=== PATIENT | female | born 1960 | race Two or more races ===

== ENCOUNTER 2020-09-27 13:33 | Inpatient (IN) | payer MEDICARE, OTHER ==
[~2020-09-27] VITALS: Ht 167.6 cm; Wt 95.3 kg
[2020-09-27] MEDS ORDERED: DiphenhydrAMINE 50mg/ml Inj IVP ONE (13:45)
[2020-09-27] MEDS ORDERED: LORazepam Inj 2mg/ml 1ml IM ONE (13:45)
[2020-09-27] MEDS ORDERED: Haloperidol 5mg/ml Inj IM ONE (13:45)
[2020-09-27 14:18] VITALS: BP 169/90
--- NOTE | 2020-09-27 14:19 | Emergency Room Report ---
History of Present Illness General Chief Complaint: Altered Mental Status Source: Patient (Ton Coughlin MD) Present Illness HPI Patient is a approximately 39-year-old female who presents for increased altered mental status and agitation. Patient had been found on the street. Had been behaving bizarrely. Unknown past medical history. History is markedly limited by patient being a poor historian. Patient was brought in by EMS with not given any medication. She was reportedly moving all extremities. (Ton Coughlin MD) Allergies: Coded Allergies: No Known Allergies (Unverified , 09/28/20) COVID-19 Screening Contact w/high risk pt: No Experienced COVID-19 symptoms?: No COVID-19 Testing performed [employer]: No (Ton Coughlin MD) Patient History Past Medical History: see triage record Reviewed Nursing Documentation: PMH: Agreed; PSxH: Agreed (Ton Coughlin MD) Nursing Documentation-PMH Past Medical History Deferred: Pt Cognitively Impaired Past Medical History: Deferred (Ton Coughlin MD) Review of Systems All Other Systems: negative except mentioned in HPI (Ton Coughlin MD) Physical Exam Vital Signs Date Time Temp Pulse Resp B/P (MAP) Pulse Ox O2 Delivery O2 Flow Rate FiO2 09/27/20 13:27 97.9 80 19 131/82 (98) 99 Room Air Sp02 EP Interpretation: reviewed, normal General Appearance: normal inspection, well appearing, no apparent distress, alert Head: atraumatic ENT: normal ENT inspection, hearing grossly normal, normal voice Neck: normal inspection, full range of motion, supple, no bony tend Respiratory: normal inspection, lungs clear, normal breath sounds, no respi ratory distress, no retraction, no wheezing Cardiovascular #1: regular rate, rhythm, no edema Gastrointestinal: normal inspection, normal bowel sounds, non tender, soft, no guarding, no hernia Genitourinary: no CVA tenderness Musculoskeletal: normal inspection, back normal, normal range of motion Neurologic: alert, responsive, other - agitation Psychiatric: normal inspection, judgement/insight normal, mood/affect normal Skin: no rash (Ton Coughlin MD) Medical Decision Making Diagnostic Impression: Primary Impression: Psychosis Qualified Codes: F23 - Brief psychotic disorder Additional Impressions: Methamphetamine abuse UTI (urinary tract infection) Qualified Codes: N30.00 - Acute cystitis without hematuria ER Course Patient presented for altered mental status. Differential diagnosis include was not limited to psychosis, urinary tract infection, substance abuse among others. Because of complexity of patient's case laboratory tests and imaging studies were ordered. Patient was noted to have some increased confusion. CT imaging showed no evidence of acute pathology. Patient was noted to have urine drug screen positive for amphetamine. Laboratory testing also showed some evidence of urinary tract infection. Patient started on IV antibiotics. Patient endorsed to Dr. Atwood pending reevaluation after medications (Ton Coughlin MD) ER Course Patient was signed out to me. She came in agitated as a Yojana Funes. She was sedated with Ativan and Haldol. She is appear to be back at baseline now. I see no focal deficit to indicate trauma or CVA or TIA. She had her close on the bed and I noticed that there is a name inside her bra, it was PAT JELLY. She was able to tell me her date of . From that were able to see from the records that she been here twice for the same thing. She has a history of schizophrenia and methamphetamine abuse. Her psychosis probably worsened because of that. No suicidal thoughts homicidal thought. She appears to be at baseline. No criteria for 5150. She lives in the [facility]. Will call and see we can send her back. This patient is a chronic risk of self injury due to poor impulse control, limited coping skills, and judgment intermittently impaired by intoxication. I believe that the available clinical evidence to suggest that these characteristics derived primarily from personality disorder and are likely very stable over time. Hospitalization would likely attenuate risk of self-harm only during chcf period, without lasting risk reduction. Serious self-harm, while possible, would likely be inadvertent, and because of impulsivity, and foreseeable. For these reasons, I do not believe hospitalization would provide meaningful reduction in risk of self-harm. (Elver Atwood MD) ER Course Patient signed out to me pending reevaluation. Brought in yesterday for altered level of consciousness. Amphetamine positive. Prior history of schizophrenia. After multiple rounds of medication patient remains gravely disabled and not safe for discharge. Has UTI. Antibiotics given. Patient will be admitted to Dr Shannon's service Laboratory Tests Test 09/27/20 14:00 09/27/20 14:28 White Blood Count 18.2 K/UL (4.8-10.8) H Red Blood Count 5.61 M/UL (4.20-5.40) H Hemoglobin 13.7 G/DL (12.0-16.0) Hematocrit 45.7 % (37.0-47.0) Mean Corpuscular Volume 81 FL (80-99) Mean Corpuscular Hemoglobin 24.4 PG (27.0-31.0) L Mean Corpuscular Hemoglobin Concent 30.0 G/DL (32.0-36.0) L Red Cell Distribution Width 14.5 % (11.6-14.8) Platelet Count 401 K/UL (150-450) Mean Platelet Volume 7.0 FL (6.5-10.1) Neutrophils (%) (Auto) % (45.0-75.0) Lymphocytes (%) (Auto) % (20.0-45.0) Monocytes (%) (Auto) % (1.0-10.0) Eosinophils (%) (Auto) % (0.0-3.0) Basophils (%) (Auto) % (0.0-2.0) Differential Total Cells Counted 100 Neutrophils % (Manual) 71 % (45-75) Lymphocytes % (Manual) 18 % (20-45) L Monocytes % (Manual) 11 % (1-10) H Eosinophils % (Manual) 0 % (0-3) Basophils % (Manual) 0 % (0-2) Band Neutrophils 0 % (0-8) Platelet Estimate Adequate Platelet Morphology Normal Anisocytosis 1+ Sodium Level 144 MMOL/L (136-145) Potassium Level 4.1 MMOL/L (3.5-5.1) Chloride Level 105 MMOL/L (98-107) Carbon Dioxide Level 25 MMOL/L (21-32) Anion Gap 14 mmol/L (5-15) Blood Urea Nitrogen 35 mg/dL (7-18) H Creatinine 1.1 MG/DL (0.55-1.30) Estimat Glomerular Filtration Rate 55.0 mL/min (>60) Glucose Level 111 MG/DL (74-106) H Calcium Level 10.1 MG/DL (8.5-10.1) Total Bilirubin 1.2 MG/DL (0.2-1.0) H Direct Bilirubin 0.4 MG/DL (0.0-0.3) H Aspartate Amino Transf (AST/SGOT) 41 U/L (15-37) H Alanine Aminotransferase (ALT/SGPT) 30 U/L (12-78) Alkaline Phosphatase 267 U/L (46-116) H Troponin I 0.000 ng/mL (0.000-0.056) Total Protein 9.4 G/DL (6.4-8.2) H Albumin 4.0 G/DL (3.4-5.0) Globulin 5.4 g/dL Albumin/Globulin Ratio 0.7 (1.0-2.7) L Thyroid Stimulating Hormone (TSH) 0.660 uiU/mL (0.358-3.740) Salicylates Level 4.2 ug/mL (2.8-20) Acetaminophen Level < 2 MCG/ML (10-30) L Serum Alcohol < 3 mg/dL Urine Color Yellow Urine Appearance Cloudy Urine pH 5 (4.5-8.0) Urine Specific [place] 1.025 (1.005-1.035) Urine Protein 3+ (NEGATIVE) H Urine Glucose (UA) Negative (NEGATIVE) Urine Ketones 2+ (NEGATIVE) H Urine Blood 2+ (NEGATIVE) H Urine Nitrite Negative (NEGATIVE) Urine Bilirubin 1+ (NEGATIVE) H Urine Ictotest Negative (NEGATIVE) Urine Urobilinogen 4 MG/DL (0.0-1.0) H Urine Leukocyte Esterase 1+ (NEGATIVE) H Urine RBC 0-2 /HPF (0 - 2) Urine WBC 2-4 /HPF (0 - 2) Urine Squamous Epithelial Cells Moderate /LPF (NONE/OCC) H Urine Amorphous Sediment Many /LPF (NONE) H Urine Bacteria Moderate /HPF (NONE) H Urine Opiates Screen Negative (NEGATIVE) Urine Barbiturates Screen Negative (NEGATIVE) Phencyclidine (PCP) Screen Negative (NEGATIVE) Urine Amphetamines Screen Positive (NEGATIVE) H Urine Benzodiazepines Screen Negative (NEGATIVE) Urine Cocaine Screen Negative (NEGATIVE) Urine Marijuana (THC) Screen Negative (NEGATIVE) (Rik Burnham MD) Last Vital Signs Date Time Temp Pulse Resp B/P (MAP) Pulse Ox O2 Delivery O2 Flow Rate FiO2 09/27/20 14:05 76 24 156/124 97 09/27/20 13:27 97.9 Room Air Status: improved (Ton Coughlin MD) Status: improved (Elver Atwood MD) Status: improved (Rik Burnham MD) Disposition: ADMITTED INPATIENT Condition: Serious Scripts Olanzapine* (ZYPREXA*) 10 Mg Tablet 10 MG ORAL DAILY, #30 TAB 0 Refills Prov: Elver Atwood MD 09/27/20 Cephalexin* (KEFLEX*) 500 Mg Capsule 500 MG ORAL TID, #21 CAP Prov: Elver Atwood MD 09/27/20 Referrals: NOT CHOSEN IPA/MD,REFERRING (PCP) Additional Instructions: Stop using drugs. Follow-up with your doctor in 7 days. Return if worse. Ton Coughlin MD Sep 27, 2020 14:19 Elver Atwood MD Sep 27, 2020 23:52 Rik Burnham MD Sep 28, 2020 08:52
[2020-09-27 14:42] LABS: HEMATOCRIT 45.7 % (37.0-47.0); HEMOGLOBIN 13.7 G/DL (12.0-16.0); MEAN CORPUSCULAR VOLUME 81 FL (80-99); PLATELET COUNT 401 K/UL (150-450); RED BLOOD COUNT 5.61 M/UL (4.20-5.40); RED CELL DISTRIBUTION WIDTH 14.5 % (11.6-14.8); WHITE BLOOD COUNT 18.2 K/UL (4.8-10.8)
[2020-09-27 14:52] LABS: ANION GAP 14 mmol/L (5-15); BLOOD UREA NITROGEN 35 mg/dL (7-18); CALCIUM 10.1 MG/DL (8.5-10.1); CARBON DIOXIDE 25 MMOL/L (21-32); CHLORIDE 105 MMOL/L (98-107); CREATININE 1.1 MG/DL (0.55-1.30); POTASSIUM 4.1 MMOL/L (3.5-5.1); SODIUM 144 MMOL/L (136-145)
[2020-09-27 15:04] LABS: ALANINE AMINOTRANSFERASE 30 U/L (12-78); ALBUMIN/GLOBULIN RATIO 0.7 (1.0-2.7); ALKALINE PHOSPHATASE 267 U/L (46-116); ASPARTATE AMINO TRANSFERASE 41 U/L (15-37); BILIRUBIN,TOTAL 1.2 MG/DL (0.2-1.0)
[2020-09-27 15:06] LABS: BILIRUBIN,DIRECT 0.4 MG/DL (0.0-0.3)
--- NOTE | 2020-09-27 15:24 | NUR ---
ED Nurse Note: pt found in middle of street. pt verbal, not making any sense. ot restless, in bed on monitor. iv in place for medication. labs sent. urine sent after straight cath.
[2020-09-27 15:29] LABS: APPEARANCE,URINE CLOUDY; BILIRUBIN, URINE 1+ (NEGATIVE); GLUCOSE, URINE (UA) NEGATIVE (NEGATIVE); KETONES,URINE 2+ (NEGATIVE); LEUKOCYTE ESTERASE ,URINE 1+ (NEGATIVE); NITRITE,URINE NEGATIVE (NEGATIVE); PH,URINE 5 (4.5-8.0); PROTEIN,URINE 3+ (NEGATIVE); UROBILINOGEN,URINE 4 MG/DL (0.0-1.0)
[2020-09-27 15:30] LABS: COLOR,URINE YELLOW
[2020-09-27] MEDS ORDERED: LORazepam Inj 2mg/ml 1ml IV ONE (15:30)
[2020-09-27] MEDS ORDERED: cefTRIAXone 1 GM in NS 55 ML IVPB ONE (16:45)
--- NOTE | 2020-09-27 19:00 | NUR ---
ED Nurse Note: patient has refused all diagnostice, patient is verbal but is incomprehensible patient is calm and cooperative at the moment
--- NOTE | 2020-09-27 19:32 | NUR ---
ED Nurse Note: patient was never restrained, order dc'd
[2020-09-27 20:00] VITALS: BP 158/80
[2020-09-27] MEDS ORDERED: ZYPREXA10 MG ORAL (23:51)
[2020-09-27] MEDS ORDERED: CEPHALEXIN500 MG ORAL (23:51)
[2020-09-28] VITALS: BP 162/78
--- NOTE | 2020-09-28 | NUR ---
ED Nurse Note: patient is better understood but still not able to give any pertinent information related to her health or living situation, patient is AOx2, calm, vitals stable, she answers some questions and informed me she has no family or friends to help her.
[2020-09-28 06:16] VITALS: BP 152/84
--- NOTE | 2020-09-28 06:30 | NUR ---
ED Nurse Note: Patient not able to be safely discharged at this time, she is verbal but confused, most words spoken are incomprhensible, patient in bed calm vitals are stable
--- NOTE | 2020-09-28 06:41 | NUR ---
ED Nurse Note: Patient intermittently becomes agitated, and have auditory and visual hallucinations, patient obeys simple commands and is able to be calmed with conversation and distraction
--- NOTE | 2020-09-28 07:13 | NUR ---
ED Nurse Note: pt in room. pt restless in room, talking to self, possible auditory hallucinations. unknown pmh for pt, unknown psych diagnosis. pt can become agitated, redirectable. MD informed of requirement for continuous monitoring.
[2020-09-28] MEDS ORDERED: Haloperidol 5mg/ml Inj IM ONE (07:15)
[2020-09-28] MEDS ORDERED: cefTRIAXone 1 GM in NS 55 ML IVPB ONE (07:30)
--- NOTE | 2020-09-28 07:44 | NUR ---
ED Nurse Note: pt given food, fluids, appropriate clothing for weather.
--- NOTE | 2020-09-28 09:25 | NUR ---
ED Nurse Note: pt refusing BP measurement. pt pulse 88, O2 sat 98% RA, resp 18. pt ambulatory & calm. RN attempted to assist pt with personal hygiene but pt argumentative and refused care. pt offered food, fluids, pt refused. will continue to monitor.
--- NOTE | 2020-09-28 09:44 | History and Physical Report ---
DATE OF ADMISSION: 09/27/2020 TIME SEEN: 8 a.m. CONSULTANTS: 1. Nazia Van MD. 2. Hemant Estrada MD. 3. . CHIEF COMPLAINT: Altered level of consciousness, schizophrenia, drug abuse, urinary tract infection. BRIEF HISTORY: This is a 60-year-old homeless female presents to [facility] with above-mentioned diagnosis, very confused, unable to give history, currently sitting on the ER gurney, team is trying to get her blood. She is very confused and babbling. PAST MEDICAL HISTORY: Schizophrenia. PAST SURGICAL HISTORY: Unknown. MEDICATIONS: Include ceftriaxone, Haldol, olanzapine, lorazepam, diphenhydramine. ALLERGIES: Unable to assess. SOCIAL HISTORY: Unable to obtain secondary to the patient's confusion. OBJECTIVE: GENERAL: Sitting in the ER gurney, disoriented x3 talking nonsense, no acute distress. VITAL SIGNS: Temperature is 98 degrees, pulse 75, respiratory rate 20, blood pressure 152/84. CARDIOVASCULAR: No murmur. LUNGS: Distant and clear. ABDOMEN: Bowel sounds positive. Soft, nontender, nondistended. EXTREMITIES: No cyanosis, clubbing, or edema. NEUROLOGIC: The patient moves all extremities, slightly weak. LABORATORY AND DIAGNOSTIC DATA: Labs at this time show white count 18, otherwise CBC is normal. BMP shows BUN 35, glucose 111, AST 41, alkaline phosphatase 267. TSH 0.6. Urinalysis show 2+ blood, 2+ ketones, 3+ protein, 1+ leukocyte esterase. Urine toxicology positive for methamphetamine. ASSESSMENT: 1. Altered level of consciousness. 2. Schizophrenia. 3. Drug abuse with methamphetamine. 4. Urinary tract infection. 5. Leukocytosis. 6. disabled. PLAN: 1. Antibiotics per Infectious Diseases. 2. PT/OT and dietary follow. 3. Detox. 4. IV fluids 5. CBC and BMP in the morning. Kendall Shannon D.O. DR: Kodi JOB#: [id number] CC:
--- NOTE | 2020-09-28 10:04 | Consultation ---
History of Present Illness General Date patient seen: Sep 28, 2020 Time patient seen: 13:42 Chief Complaint: Altered Mental Status Referring physician: Dr. Shannon Reason for Consultation: R/o UTI Present Illness HPI 60yo F who p/w AMS and agitation after being found in the streets. ID c/s to r/o UTI/infeciton. Pt is poor historian, per chart review was found in the streets acting bizarrely so was brought in. Pt has been AF, HDS in house on RA with leukocytosis to 18 and Utox +meth. Allergies: Coded Allergies: UNABLE TO ASSESS (Unverified , 09/27/20) Medication History Scheduled Cephalexin* (Keflex*), 500 MG ORAL TID Olanzapine* (Zyprexa*), 10 MG ORAL DAILY Patient History Limited by: medical condition Healthcare decision maker Resuscitation status Advanced Directive on File Review of Systems ROS Narrative Unable to assess 2/2 pt condition Physical Exam Physical Exam Narrative Gen: NAD HEENT: NCAT Pulm: BL chest rise Abd: Non-distended Ext: No c/c/e. L foot w/ hard darkly pigmented calluses around hallux and under foot Skin: No visible rashes Neuro: Awake, altered Last 24 Hour Vital Signs Date Time Temp Pulse Resp B/P (MAP) Pulse Ox O2 Delivery O2 Flow Rate FiO2 09/28/20 09:25 88 18 98 Room Air 09/28/20 06:16 98.0 75 20 152/84 99 Room Air 09/28/20 00:00 98.2 89 22 162/78 99 Room Air 09/27/20 20:00 97.9 18 158/80 99 Room Air 09/27/20 15:48 89 49 166/84 99 09/27/20 15:26 78 25 Room Air 97 09/27/20 14:18 76 32 169/90 97 Room Air 09/27/20 14:05 76 24 156/124 97 09/27/20 13:27 97.9 80 19 131/82 (98) 99 Room Air Intake and Output 09/27/20 09/28/20 19:00 07:00 Intake Total 0 ml Balance 0 ml Intake Oral 0 ml Laboratory Tests Test 09/27/20 14:00 09/27/20 14:28 White Blood Count 18.2 K/UL (4.8-10.8) H Red Blood Count 5.61 M/UL (4.20-5.40) H Hemoglobin 13.7 G/DL (12.0-16.0) Hematocrit 45.7 % (37.0-47.0) Mean Corpuscular Volume 81 FL (80-99) Mean Corpuscular Hemoglobin 24.4 PG (27.0-31.0) L Mean Corpuscular Hemoglobin Concent 30.0 G/DL (32.0-36.0) L Red Cell Distribution Width 14.5 % (11.6-14.8) Platelet Count 401 K/UL (150-450) Mean Platelet Volume 7.0 FL (6.5-10.1) Neutrophils (%) (Auto) % (45.0-75.0) Lymphocytes (%) (Auto) % (20.0-45.0) Monocytes (%) (Auto) % (1.0-10.0) Eosinophils (%) (Auto) % (0.0-3.0) Basophils (%) (Auto) % (0.0-2.0) Differential Total Cells Counted 100 Neutrophils % (Manual) 71 % (45-75) Lymphocytes % (Manual) 18 % (20-45) L Monocytes % (Manual) 11 % (1-10) H Eosinophils % (Manual) 0 % (0-3) Basophils % (Manual) 0 % (0-2) Band Neutrophils 0 % (0-8) Platelet Estimate Adequate Platelet Morphology Normal Anisocytosis 1+ Sodium Level 144 MMOL/L (136-145) Potassium Level 4.1 MMOL/L (3.5-5.1) Chloride Level 105 MMOL/L (98-107) Carbon Dioxide Level 25 MMOL/L (21-32) Anion Gap 14 mmol/L (5-15) Blood Urea Nitrogen 35 mg/dL (7-18) H Creatinine 1.1 MG/DL (0.55-1.30) Estimat Glomerular Filtration Rate 55.0 mL/min (>60) Glucose Level 111 MG/DL (74-106) H Calcium Level 10.1 MG/DL (8.5-10.1) Total Bilirubin 1.2 MG/DL (0.2-1.0) H Direct Bilirubin 0.4 MG/DL (0.0-0.3) H Aspartate Amino Transf (AST/SGOT) 41 U/L (15-37) H Alanine Aminotransferase (ALT/SGPT) 30 U/L (12-78) Alkaline Phosphatase 267 U/L (46-116) H Troponin I 0.000 ng/mL (0.000-0.056) Total Protein 9.4 G/DL (6.4-8.2) H Albumin 4.0 G/DL (3.4-5.0) Globulin 5.4 g/dL Albumin/Globulin Ratio 0.7 (1.0-2.7) L Thyroid Stimulating Hormone (TSH) 0.660 uiU/mL (0.358-3.740) Salicylates Level 4.2 ug/mL (2.8-20) Acetaminophen Level < 2 MCG/ML (10-30) L Serum Alcohol < 3 mg/dL Urine Color Yellow Urine Appearance Cloudy Urine pH 5 (4.5-8.0) Urine Specific [place] 1.025 (1.005-1.035) Urine Protein 3+ (NEGATIVE) H Urine Glucose (UA) Negative (NEGATIVE) Urine Ketones 2+ (NEGATIVE) H Urine Blood 2+ (NEGATIVE) H Urine Nitrite Negative (NEGATIVE) Urine Bilirubin 1+ (NEGATIVE) H Urine Ictotest Negative (NEGATIVE) Urine Urobilinogen 4 MG/DL (0.0-1.0) H Urine Leukocyte Esterase 1+ (NEGATIVE) H Urine RBC 0-2 /HPF (0 - 2) Urine WBC 2-4 /HPF (0 - 2) Urine Squamous Epithelial Cells Moderate /LPF (NONE/OCC) H Urine Amorphous Sediment Many /LPF (NONE) H Urine Bacteria Moderate /HPF (NONE) H Urine Opiates Screen Negative (NEGATIVE) Urine Barbiturates Screen Negative (NEGATIVE) Phencyclidine (PCP) Screen Negative (NEGATIVE) Urine Amphetamines Screen Positive (NEGATIVE) H Urine Benzodiazepines Screen Negative (NEGATIVE) Urine Cocaine Screen Negative (NEGATIVE) Urine Marijuana (THC) Screen Negative (NEGATIVE) Height (Feet): 5 Height (Inches): 6.00 Weight (Pounds): 210 Assessment/Plan Assessment/Plan: 60yo F with: Afebrile Leukocytosis to 18 AMS, agitation Schizophrenia Meth intoxication R/o UTI 2/6 UA neg, UCx p R/o COVID Elevated AST to 41 Lymphopenia 2/7 COVID PCR ordered CXR: Diffuse interstitial opacities may represent an infectious/inflammatory process. Plan: Cont CTX 1g IV daily #2 COVID PCR CXR screen, reviewed HIV screen F/u UCx Trend WBC Monitor CBC/CMP Monitor temp curve, hemodynamics Monitor resp status D/w RN & ED MD Thank you for this consult. [facility] will continue to follow. Christin Rowley M.D. Sep 28, 2020 10:04
--- NOTE | 2020-09-28 10:41 | NUR ---
ED Nurse Note: pt covid swab sent to lab
[2020-09-28 12:00] VITALS: BP 150/80
--- NOTE | 2020-09-28 12:28 | NUR ---
ED Nurse Note: pt in room. excessive garbled speech. pt redirectable, follows commands with repeated request. pt restless. pt given food/fluids PO. pt speaking rapidly. pt seems to be able to follow some of RN speech, unable to form full sentences that are coherent. IV no longer able to flush. RN removed, catheter intact, dressing applied (clean, dry, intact).
--- NOTE | 2020-09-28 13:13 | Diagnostic Imaging Report ---
EXAM: XR Chest, 1 View CLINICAL HISTORY: INFECT TECHNIQUE: Frontal view of the chest. COMPARISON: None FINDINGS: Hardware: None. Lungs/pleura: Diffuse interstitial opacities. No pleural effusion or pneumothorax. Heart/mediastinum: Normal. No cardiomegaly. Soft tissues: Unremarkable. Bones: No acute fracture. Upper abdomen: Normal. IMPRESSION: Diffuse interstitial opacities may represent an infectious/inflammatory process.
[2020-09-28 15:00] VITALS: BP 145/76
--- NOTE | 2020-09-28 15:04 | NUR ---
ED Nurse Note: pt in room. pt given food, fluids. pt sleeping in bed for approx 1 hr. new IV placed, not problems noted. clean/dry/intact. pt given clean towels for personal hygeine. pt cleaned self, will not let RN help her. pt feet present with calloused skin on bilateral feet, MD evaluated with infectious disease MD, XRAY ordered.
--- NOTE | 2020-09-28 15:06 | Diagnostic Imaging Report ---
EXAM: XR Right Foot Complete, 3 or More Views CLINICAL HISTORY: PAIN TECHNIQUE: Frontal, lateral and oblique views of the right foot. COMPARISON: None FINDINGS: Bones/joints: No displaced fracture or dislocation identified. Osteopenia. Small plantar and posterior calcaneal spurs. Degenerative changes of the right first MTP joint. Soft tissues: Mild soft tissue swelling. IMPRESSION: No displaced fracture or dislocation identified.
--- NOTE | 2020-09-28 15:10 | Diagnostic Imaging Report ---
EXAM: XR Left Foot Complete, 3 or More Views CLINICAL HISTORY: PAIN TECHNIQUE: Frontal, lateral and oblique views of the left foot. COMPARISON: None FINDINGS: Bones/joints: No displaced fracture or dislocation identified. Osteopenia. Degenerative changes of the left first MTP joint. Small posterior calcaneal spur. Soft tissues: Soft tissue swelling. IMPRESSION: No displaced fracture or dislocation identified.
--- NOTE | 2020-09-28 19:55 | NUR ---
NURSE NOTES: After given report to CN in 4E, pt admitted from ED via wheelchair by ED CN with her belongings. No acute distress noted but drowsy. No respiratory distress noted. Being transferred to bed with one staff assist. Noted wound on both feet. Will provide wound treatment as protocol. IV is left AC 22G H/L. Call light within reach. On bed alarm. Will continue to monitor.
[2020-09-28 20:00] VITALS: BP 165/75
--- NOTE | 2020-09-28 20:30 | NUR ---
NURSE NOTES: Receive admission orders from Dr. Shannon. Order noted and carried out. Will continue to monitor.
[2020-09-28] MEDS ORDERED: Varibar Thin Liquid powder 148gm MC PRN (21:00)
[2020-09-28] MEDS ORDERED: Varibar Honey 250ml MC PRN (21:00)
[2020-09-28] MEDS ORDERED: Varibar Pudding 230ml MC PRN (21:00)
[2020-09-28] MEDS ORDERED: Varibar Nectar 240ml MC PRN (21:00)
--- NOTE | 2020-09-28 21:10 | NUR ---
NURSE NOTES: Left a message to Dr. Van for pt's consult.
[2020-09-28] MEDS: D5 1/2NS 1,000 ML IV SCH (22:16)
[2020-09-28] MEDS: Heparin 5000 units/ml inj SUBQ SCH (22:20)
--- NOTE | 2020-09-28 22:30 | NUR ---
NURSE NOTES: Denies pain. Asleep but easily aroused. Taken photos on both feet. Dressing done with opticform after cleaning with NS and patting dry. Will continue to monitor.
[2020-09-29] VITALS: BP 145/74
--- NOTE | 2020-09-29 01:20 | NUR ---
NURSE NOTES: Pt got out of bed to use bathroom. Two staffs assist to use BSC d/t unsteady gaits. Request for food. Provide sandwich and done MASA nares but refuses swabs for VRE and CRE. Will try again later and will continue to monitor.
[2020-09-29 04:00] VITALS: BP 141/79
--- NOTE | 2020-09-29 04:30 | NUR ---
NURSE NOTES: Pt wants to use bathroom. Provide bedpan d/t unsteady gait and balance. Re-educate fall precautions. On bed alarm. Done VRE and CRE swabs. Call light within reach. Will continue to monitor.
--- NOTE | 2020-09-29 06:37 | NUR ---
NURSE HAND-OFF: Important Events on Shift: Newly admission from ED. Homeless. Altered Mental status-confused. Noted abruptly getting out bed without asking for help despite unsteady gaits. Patient Status: [] Diet: [regular] Pending Orders: [PT, ST, Consults] Pending Results/Labs:[] Pending MD notification:[sitter order] Latest Vital Signs: Temperature 97.9 , Pulse 69 , B/P 141 /79 , Respiratory Rate 18 , O2 SAT 98 , Room Air, O2 Flow Rate . Vital Sign Comment: [] Latest Donis Fall Score: 60 Fall Risk: High Risk Safety Measures: Call light Within Reach, Bed Alarm Zone 1, Side Rails Side Rails x3, Bed position Low and Locked. Fall Precautions: Yellow Socks Door Sign Patient Fall Education
[2020-09-29] MEDS ORDERED: LORazepam 1mg tab ORAL PRN (07:15)
--- NOTE | 2020-09-29 07:15 | NUR ---
NURSE NOTES: Receive new orders including sitter order from Dr. Van. Order noted and carried out.
--- NOTE | 2020-09-29 07:45 | NUR ---
NURSE NOTES: Given report from MORENO Parrish.
--- NOTE | 2020-09-29 07:55 | NUR ---
NURSE NOTES: Received report from Elliott Mace RN. Patient sleeping in semi-Antoine's position, on room air, respirations at 14 breaths per minute, bed in lowest position, wheels locked, side rails up x 3, call light within reach, sitter at door, bedside commode at bedside, IV running D51/2NS@60cc/hour, in no apparent distress.
[2020-09-29 08:00] VITALS: BP 125/83
--- NOTE | 2020-09-29 08:02 | NUR ---
NURSE NOTES: Left message with Latasha at message service for Dr. Kendall Shannon notifying that patient does not have teeth and diet will need to have texture modification.
[2020-09-29] MEDS: cefTRIAXone 1gm/D5W 55ml IVPB SCH ×2 (08:48)
[2020-09-29] MEDS: Heparin 5000 units/ml inj SUBQ SCH ×2 (08:48→20:50)
--- NOTE | 2020-09-29 08:59 | Infectious Diseases Prog Note ---
Assessment/Plan 60yo F with: Afebrile Leukocytosis to 18 AMS, agitation Schizophrenia Meth intoxication R/o UTI / UA neg, UCx p R/o COVID Elevated AST to 41 Lymphopenia 09/28 COVID PCR ordered CXR: Diffuse interstitial opacities may represent an infectious/inflammatory process. Plan: Cont CTX 1g IV daily #3 for possible infection F/u COVID PCR HIV screen F/u UCx Trend WBC Monitor CBC/CMP Monitor temp curve, hemodynamics Monitor resp status D/w RN Thank you for this consult. [facility] will continue to follow. Subjective Allergies: Coded Allergies: No Known Allergies (Unverified , 09/28/20) AF NAD on RA Labs p Objective Last 24 Hour Vital Signs Date Time Temp Pulse Resp B/P (MAP) Pulse Ox O2 Delivery O2 Flow Rate FiO2 09/29/20 04:00 97.9 69 18 141/79 (99) 98 09/29/20 00:00 97.7 62 18 145/74 (97) 98 09/28/20 21:00 Room Air 09/28/20 20:00 Room Air 09/28/20 20:00 98.6 78 18 165/75 (105) 96 09/28/20 15:00 78 18 145/76 99 09/28/20 12:00 98.4 80 18 150/80 99 09/28/20 09:25 88 18 98 Room Air Height (Feet): 5 Height (Inches): 6.00 Weight (Pounds): 210 Gen: NAD HEENT: NCAT Pulm: BL chest rise Abd: Non-distended Ext: No c/c/e. L foot w/ hard darkly pigmented calluses around hallux and under foot Skin: No visible rashes Neuro: Awake, altered Microbiology Date/Time Source Procedure Growth Status 09/29/20 05:10 Rectum Ordered Laboratory Tests Test 09/28/20 13:25 HIV (1&2) Antibody Rapid Pending Current Medications Medications (Trade) Dose Ordered Sig/Phuc Route PRN Reason Start Time Stop Time Status Last Admin Dose Admin Barium Sulfate (Varibar Honey) 250 ml NOW PRN MC RAD 09/28/20 21:00 10/01/20 20:48 Barium Sulfate (Varibar Byng) 240 ml NOW PRN MC RAD 09/28/20 21:00 10/01/20 20:48 Barium Sulfate (Varibar Pudding) 230 ml NOW PRN MC RAD 09/28/20 21:00 10/01/20 20:48 Barium Sulfate (Varibar Thin Liquid powder) 148 gm NOW PRN MC RAD 09/28/20 21:00 10/01/20 20:48 Ceftriaxone Sodium 1 gm/ Dextrose 55 ml @ 110 mls/hr Q24H IVPB 09/29/20 09:00 10/06/20 08:59 09/29/20 08:48 Dextrose/Sodium Chloride 1,000 ml @ 60 mls/hr [id number] IV 09/28/20 20:30 10/28/20 20:29 09/28/20 22:16 Heparin Sodium (Porcine) (Heparin 5000 units/ml) 5,000 units EVERY 12 HOURS SUBQ 09/28/20 21:00 11/12/20 20:59 09/29/20 08:48 Lorazepam (Ativan) 1 mg Q6H PRN ORAL AGITATION 09/29/20 07:15 10/06/20 07:14 Risperidone (RisperDAL) 1 mg BID ORAL 09/29/20 09:00 11/13/20 08:59 09/29/20 08:47 Christin Rowley M.D. Sep 29, 2020 08:59
--- NOTE | 2020-09-29 09:18 | General Progress Note ---
Subjective Constitutional: Reports: weakness Allergies: Coded Allergies: No Known Allergies (Unverified , 09/28/20) All Systems: reviewed and negative except above Subjective sleepy calm Objective Last 24 Hour Vital Signs Date Time Temp Pulse Resp B/P (MAP) Pulse Ox O2 Delivery O2 Flow Rate FiO2 09/29/20 08:00 98.1 86 20 125/83 (97) 97 09/29/20 04:00 97.9 69 18 141/79 (99) 98 09/29/20 00:00 97.7 62 18 145/74 (97) 98 09/28/20 21:00 Room Air 09/28/20 20:00 Room Air 09/28/20 20:00 98.6 78 18 165/75 (105) 96 09/28/20 15:00 78 18 145/76 99 09/28/20 12:00 98.4 80 18 150/80 99 09/28/20 09:25 88 18 98 Room Air Intake and Output 09/28/20 09/29/20 19:00 07:00 Intake Total 405 ml Balance 405 ml Intake Oral 150 ml IV Total 255 ml # Voids 1 Laboratory Tests 09/28/20 13:25: HIV (1&2) Antibody Rapid [Pending] Height (Feet): 5 Height (Inches): 6.00 Weight (Pounds): 210 General Appearance: lethargic EENT: normal ENT inspection Neck: normal alignment Cardiovascular: normal peripheral pulses, normal rate, regular rhythm Respiratory/Chest: chest wall non-tender, lungs clear, normal breath sounds Abdomen: normal bowel sounds, non tender, soft Extremities: normal inspection Edema: no edema noted Arm (L), no edema noted Arm (R), no edema noted Leg (L), no edema noted Leg (R), no edema noted Pedal (L), no edema noted Pedal (R), no edema noted Generalized Neurologic: motor weakness Skin: normal pigmentation, warm/dry Objective sl wounds bottom of feet b/l Assessment/Plan Problem List: (1) Foot abrasion ICD Codes: S90.819A - Abrasion, unspecified foot, initial encounter SNOMED: 243300118 (2) Substance abuse ICD Codes: F19.10 - Other psychoactive substance abuse, uncomplicated SNOMED: 60168135 (3) Altered mental status ICD Codes: R41.82 - Altered mental status, unspecified SNOMED: 921229971 (4) Psychosis ICD Codes: F29 - Unspecified psychosis not due to a substance or known physiological condition SNOMED: 64548322 Qualifiers: Qualified Codes: F23 - Brief psychotic disorder (5) UTI (urinary tract infection) ICD Codes: N39.0 - Urinary tract infection, site not specified SNOMED: 33485914 Qualifiers: Qualified Codes: N30.00 - Acute cystitis without hematuria (6) Methamphetamine abuse ICD Codes: F15.10 - Other stimulant abuse, uncomplicated SNOMED: 494933752 Status: unchanged Assessment/Plan: wwound care abx pod eval psyc and neuro eval cbc bmp am Kendall Shannon DO Sep 29, 2020 09:18
--- NOTE | 2020-09-29 11:33 | NUR ---
P.T Note: P.T consult received. P.T evaluation attempted however pt was half asleep ,tried to talk to her however pt would respond to the therapist. RN notified.Will reattempt when pt cooperates.
[2020-09-29 12:00] VITALS: BP 129/77
--- NOTE | 2020-09-29 13:22 | NUR ---
RD ASSESSMENT & RECOMMENDATIONS SEE CARE ACTIVITY FOR COMPLETE ASSESSMENT DAILY ESTIMATED NEEDS: Needs based on Wounds, 62kg abw 30-35 kcals/kg 1970-1961 total kcals 1.25-1.5 g protein/kg 78-93 g total protein 25-35ml/kcal mL/kg 8031-5357 total fluid mLs NUTRITION DIAGNOSIS: Increased pro needs r/t wound healing as evidenced by BL foot wounds, eval pending, photos, noted, h/o homelessness and substance abuse. CURRENT DIET: Regular PO DIET RECOMMENDATIONS: Maintain Regular diet, texture per TOOL MAKER APPRENTICE ADDITIONAL RECOMMENDATIONS: 1) Obtain a calibrated bed scale wt 2) Rec HgA1C 3) TOOL MAKER APPRENTICE eval, f/up for appropriate texture 4) Add Ensure Enlive TID as tolerated 5) F/up w/ wound eval-> rec STACI BID 6) Updated labs as able
[2020-09-29] MEDS: D5 1/2NS 1,000 ML IV SCH (14:34)
--- NOTE | 2020-09-29 14:52 | NUR ---
CASE MANAGEMENT:REVIEW 60 Y[address] OLD FEMALE [address] STREET TO ER CC: ALTERED SI: PSYCHOSIS. UTI. METHAMPHETAMINE ABUSE 97.8 80 19 131/82 99% ON RA WBC+18.2 BUN+35 URINE(+) METH IS: IV ROCEPHIN IV BENADRYL IM HALDOL X2 ATIVAN IM 1L NS BOLUS IV ATIVAN IV ROCEPHIN CARDIAC MONITORING : TO MED/SURG UNIT
[2020-09-29] MEDS ORDERED: DiphenhydrAMINE 50mg/ml Inj IM SCH ×2 (15:45→20:00)
[2020-09-29] MEDS ORDERED: LORazepam Inj 2mg/ml 1ml IM SCH ×2 (15:45→20:00)
[2020-09-29] MEDS ORDERED: Haloperidol 5mg/ml Inj IM SCH ×2 (15:45→20:00)
[2020-09-29 16:00] VITALS: BP 125/76
--- NOTE | 2020-09-29 17:21 | NUR ---
Speech Pathology Note (Bedside Dysphagia Evaluation) Brief Note: MS. Hemphill is a 60 year old female with history of Schizophrenia, Drug abuse was taken from street due to agitation and AMS. Pt was found to be leukocytosis 18.2k and subsequently admitted for sepsis. Findings: Ms. Hemphill was sleeping. Her dinner tray was delivered. I asked if can assess swallow function, but she refused by stating " I eat whenever I want." and went back to sleep. Her speech was dysarthric but adequately intelligible. Her voice is intact. PO trial was deferred. However while I was charting, nursing staff notified me that she started eating her dinner. When I observed her eating, she stopped eating. During my part of observation, she is tolerating on mashed potato, grounded solid and liquid without overt s.s of aspiration. Pt stated that " I am fine.." Interpretation: 1. Functional swallow 2. Underlying dysarthria with poor chewing Plan: 1. Continued with soft grounded solid diet and thin liquid (Current diet) I will sign off from speech service at this time. Juany Paz
--- NOTE | 2020-09-29 19:25 | NUR ---
NURSE HAND-OFF: Important Events on Shift: Patient refusing oral medications. Patient uncooperative and yelling epitaphs. Added podiatry consult. IM meds to be given at 2000 ativan, haldol, and benadryl and if patient calm, then discontinue sitter. Patient Status: In no apparent distress. Diet: Regular diet, mechanical soft chopped, nutrition consult recommended Casper BID and ensure TID. Pending Orders: N/A Pending Results/Labs:N/A Pending MD notification:N/A Latest Vital Signs: Temperature 97.8 , Pulse 88 , B/P 125 /76 , Respiratory Rate 18 , O2 SAT 96 , Room Air, O2 Flow Rate . Vital Sign Comment: N/A Latest Donis Fall Score: 60 Fall Risk: High Risk Safety Measures: Call light Within Reach, Bed Alarm Zone 1, Side Rails Side Rails x3, Bed position Low and Locked. Fall Precautions: Yellow Socks Door Sign Patient Fall Education Report given to Osmin Everett RN.
[2020-09-29 20:00] VITALS: BP 117/78
--- NOTE | 2020-09-29 20:00 | NUR ---
NURSE NOTES: Patient in bed, awake, alert, refuses care, passive. Bed in low and locked position. provided safe environment. Refused bilateral foot inspection, "its ok, it doesnt even hurt." Will reassess. Iv site noted, iv fluid is infusing as ordered. No complaint of pain or discomfort at this time. Call light is at bedside. Will continue plan of care.
--- NOTE | 2020-09-29 21:00 | NUR ---
NURSE NOTES: Given IM haldol, ativan, benadryl, will check vital signs, visual checks will be done.
--- NOTE | 2020-09-29 23:00 | NUR ---
NURSE NOTES: Patient refused to have iV to be checked, requests not to be bothered, wants to sleep. Will reassess.
[2020-09-30] VITALS: BP 119/61
[2020-09-30 04:00] VITALS: BP 135/69
--- NOTE | 2020-09-30 05:00 | NUR ---
NURSE NOTES: Patient refused blood draw, attempted to educate patient, patient refused and went back to sleep. Will attempt again.
[2020-09-30] MEDS: D5 1/2NS 1,000 ML IV SCH ×2 (05:47→22:33)
--- NOTE | 2020-09-30 07:07 | NUR ---
NURSE HAND-OFF: Important Events on Shift: Refuses care. Patient Status: WNL Diet: REG Pending Orders: Pending Results/Labs: Pending MD notification : Latest Vital Signs: Temperature 97.2 , Pulse 69 , B/P 135 /69 , Respiratory Rate 20 , O2 SAT 96 , Room Air, O2 Flow Rate . Vital Sign Comment: WNL Latest Donis Fall Score: 60 Fall Risk: High Risk Safety Measures: Call light Within Reach, Bed Alarm Zone 1, Side Rails Side Rails x3, Bed position Low and Locked. Fall Precautions: Yellow Socks Door Sign Patient Fall Education Report given to MORENO Garcia.
--- NOTE | 2020-09-30 07:45 | NUR ---
NURSE NOTES: Received report from MORENO Solorio. Pt was asleep in bed, refused cares according to night nurse. Breathing even and unlabored on RA. No acute distress noted. Bed in low position, locked and alarm on. Call light within reach. Will continue to monitor.
--- NOTE | 2020-09-30 07:59 | Consultation ---
DATE OF CONSULTATION: 09/29/2020 PSYCHOTHERAPY CONSULTATION PROGRESS NOTE CONSULTING PHYSICIAN: Brigitte Seay PsyD TREATING ATTENDING PHYSICIAN: Kendall Shannon D.O. HISTORY OF PRESENT ILLNESS: This patient is a female patient. She is 60 years old, brought into the hospital for altered mental status. She has a history of schizophrenia 00:26 referred for psychotherapeutic services. I assessed the patient today. The patient is very confused. She continues to have a blanket over her head, speaks through the blanket 00:36. The patient is aware of her name. She does not know why she was brought into the hospital. She denies suicidal or homicidal thoughts of ideation. However, at this time she is extremely confused, in altered mental status. She could not really know 00:48 in the hospital. She looks very confused. She continues to have a sitter for 00:53 safety. She is mumbling to herself and disorganized. PAST MEDICAL HISTORY: At this time is unknown 01:03. ALLERGIES: The patient has no known drug allergies. SUBSTANCE ABUSE HISTORY: 01:11 smoking cigarettes. Denies history of alcohol use. SOCIAL HISTORY: The patient is a 60-year-old single female patient. At this time, housing is unknown. She was unable to respond to that. Financially sustained through [employer]. MENTAL STATUS EXAMINATION: She is alert, oriented to person and place. Mood is dysphoric. Affect is blunted. Thought process disorganized. She has poor attention and concentration. Poor insight, judgment, impulse control. I ASSESSED THIS PATIENT AND PROVIDED THE PATIENT WITH: 1. Reality orientation, oriented to person, place, time, and situation. 2. Supportive psychotherapy encouraging the patient to process thoughts and feelings utilizing positive communication skills. At this time, the patient remains very confused and disorganized, altered in her mental status. DIAGNOSES: 1. Paranoid schizophrenia, methamphetamine abuse. 2. UTI. 3. Leukocytosis. 4. Psychosocial stressors, moderate. STRENGTH: The patient is currently having a sitter and is being monitored in the hospital setting. The patient is very confused, disorganized, in altered mental status. PLAN: The plan is to maintain medication compliance, assist with positive coping skills, and stabilizing the thoughts and behavior. Psychotherapy services 45 minutes. This clinician has reviewed the patient's chart and discussed the treatment with team with an extensive review. Brigitte Seay PsyD. DR: Anuj JOB#: [id number] CC:
[2020-09-30 08:00] VITALS: BP 136/66
--- NOTE | 2020-09-30 08:30 | NUR ---
NURSE NOTES: Pt refused blood draw for today, medication, IV to be checked. Explained benefits and risks. Pt yelling and stating " do not bother me."
--- NOTE | 2020-09-30 08:37 | Infectious Diseases Prog Note ---
Assessment/Plan 60yo F with: L hallux w/ pus at 1st sulcus, r/o deeper osteomyelitis Unable to obtain wound cx as pt refusing exams/wound care MRSA nares ordered Afebrile Leukocytosis to 18 AMS, agitation Schizophrenia Meth intoxication R/o UTI / UA neg, UCx neg R/o COVID Elevated AST to 41 Lymphopenia 09/28 COVID PCR ordered CXR: Diffuse interstitial opacities may represent an infectious/inflammatory process. Plan: Cont CTX 1g IV daily #4 for pus from L hallux wound MRSA nares MRI ordered by Auto Rep[employer] Manager Dr. Antonio F/u COVID PCR HIV screen ESR, CRP Trend WBC Monitor CBC/CMP Monitor temp curve, hemodynamics Monitor resp status D/w RN & Auto Rep[employer] Manager Dr. Antonio Thank you for this consult. [facility] will continue to follow. Subjective Allergies: Coded Allergies: No Known Allergies (Unverified , 09/28/20) AF NAD on RA Still no new labs Refusing all exams and labs Objective Last 24 Hour Vital Signs Date Time Temp Pulse Resp B/P (MAP) Pulse Ox O2 Delivery O2 Flow Rate FiO2 09/30/20 04:00 97.2 69 20 135/69 (91) 96 09/30/20 00:00 97.8 74 20 119/61 (80) 94 09/29/20 21:16 80 16 116/76 96 09/29/20 21:00 Room Air 09/29/20 20:46 88 18 125/76 96 09/29/20 20:00 98.0 82 18 117/78 (91) 97 09/29/20 16:00 97.8 88 18 125/76 (92) 96 09/29/20 12:00 97.9 81 18 129/77 (94) 98 09/29/20 09:00 Room Air Height (Feet): 5 Height (Inches): 6.00 Weight (Pounds): 210 Gen: NAD HEENT: NCAT Pulm: BL chest rise on RA Abd: Non-distended Ext: No c/c/e. L foot w/ hard darkly pigmented calluses around hallux and under foot Skin: No visible rashes Neuro: Sleeping Microbiology Date/Time Source Procedure Growth Status 09/29/20 05:10 Rectum Ordered 09/27/20 14:28 Urine,Clean Catch Urine Culture - Preliminary NO GROWTH Resulted Current Medications Medications (Trade) Dose Ordered Sig/Phuc Route PRN Reason Start Time Stop Time Status Last Admin Dose Admin Barium Sulfate (Varibar Honey) 250 ml NOW PRN MC RAD 09/28/20 21:00 10/01/20 20:48 Barium Sulfate (Varibar Rembert) 240 ml NOW PRN MC RAD 09/28/20 21:00 10/01/20 20:48 Barium Sulfate (Varibar Pudding) 230 ml NOW PRN MC RAD 09/28/20 21:00 10/01/20 20:48 Barium Sulfate (Varibar Thin Liquid powder) 148 gm NOW PRN MC RAD 09/28/20 21:00 10/01/20 20:48 Ceftriaxone Sodium 1 gm/ Dextrose 55 ml @ 110 mls/hr Q24H IVPB 09/29/20 09:00 10/06/20 08:59 09/29/20 08:48 Dextrose/Sodium Chloride 1,000 ml @ 60 mls/hr [id number] IV 09/28/20 20:30 10/28/20 20:29 09/30/20 05:47 Heparin Sodium (Porcine) (Heparin 5000 units/ml) 5,000 units EVERY 12 HOURS SUBQ 09/28/20 21:00 11/12/20 20:59 09/29/20 20:50 Lorazepam (Ativan) 1 mg Q6H PRN ORAL AGITATION 09/29/20 07:15 10/06/20 07:14 Risperidone (RisperDAL) 1 mg BID ORAL 09/29/20 09:00 11/13/20 08:59 09/29/20 08:47 Christin Rowley M.D. Sep 30, 2020 08:37
[2020-09-30] MEDS: cefTRIAXone 1gm/D5W 55ml IVPB SCH ×2 (08:47)
[2020-09-30] MEDS: Heparin 5000 units/ml inj SUBQ SCH ×3 (08:48→21:00)
--- NOTE | 2020-09-30 09:00 | NUR ---
NURSE NOTES: Pt refused to swab nose for MRSA nare test. Will attempt when pt cooperative.
--- NOTE | 2020-09-30 09:03 | NUR ---
CHILDREN'S TUTOR NOTE SW attempted to meet w/ pt fo psychosocial assessment PT was lying in her bed, awake, yelling and aggressively responding to this SW, and refusing to engage/participate in psychosocial assessment. SW was unable to obtain any information. SW will attempt when pt becomes cooperative. UDS positive for amphetamine.
--- NOTE | 2020-09-30 09:18 | General Progress Note ---
Subjective Constitutional: Reports: weakness Allergies: Coded Allergies: No Known Allergies (Unverified , 09/28/20) All Systems: reviewed and negative except above Subjective sleepy calm Objective Last 24 Hour Vital Signs Date Time Temp Pulse Resp B/P (MAP) Pulse Ox O2 Delivery O2 Flow Rate FiO2 09/30/20 04:00 97.2 69 20 135/69 (91) 96 09/30/20 00:00 97.8 74 20 119/61 (80) 94 09/29/20 21:16 80 16 116/76 96 09/29/20 21:00 Room Air 09/29/20 20:46 88 18 125/76 96 09/29/20 20:00 98.0 82 18 117/78 (91) 97 09/29/20 16:00 97.8 88 18 125/76 (92) 96 09/29/20 12:00 97.9 81 18 129/77 (94) 98 Intake and Output 09/29/20 09/30/20 19:00 07:00 Intake Total 1165 ml 750 ml Output Total 800 ml 400 ml Balance 365 ml 350 ml Intake Oral 400 ml 250 ml IV Total 765 ml 500 ml Output Urine Total 800 ml 400 ml # Voids 3 2 Height (Feet): 5 Height (Inches): 6.00 Weight (Pounds): 210 General Appearance: lethargic EENT: normal ENT inspection Neck: normal alignment Cardiovascular: normal peripheral pulses, normal rate, regular rhythm Respiratory/Chest: chest wall non-tender, lungs clear, normal breath sounds Abdomen: normal bowel sounds, non tender, soft Extremities: normal inspection Edema: no edema noted Arm (L), no edema noted Arm (R), no edema noted Leg (L), no edema noted Leg (R), no edema noted Pedal (L), no edema noted Pedal (R), no edema noted Generalized Neurologic: motor weakness Skin: normal pigmentation, warm/dry Objective sl wounds bottom of feet b/l Assessment/Plan Problem List: (1) Foot abrasion ICD Codes: S90.819A - Abrasion, unspecified foot, initial encounter SNOMED: 691677929 (2) Substance abuse ICD Codes: F19.10 - Other psychoactive substance abuse, uncomplicated SNOMED: 98511062 (3) Altered mental status ICD Codes: R41.82 - Altered mental status, unspecified SNOMED: 722246152 (4) Psychosis ICD Codes: F29 - Unspecified psychosis not due to a substance or known physiological condition SNOMED: 58619633 Qualifiers: Qualified Codes: F23 - Brief psychotic disorder (5) UTI (urinary tract infection) ICD Codes: N39.0 - Urinary tract infection, site not specified SNOMED: 00050445 Qualifiers: Qualified Codes: N30.00 - Acute cystitis without hematuria (6) Methamphetamine abuse ICD Codes: F15.10 - Other stimulant abuse, uncomplicated SNOMED: 744795119 Status: unchanged Assessment/Plan: wwound care abx pod eval psyc and neuro eval cbc bmp am aru eval Kendall Shannon DO Sep 30, 2020 09:18
--- NOTE | 2020-09-30 10:12 | NUR ---
*-*DISCHARGE PLANNING*-* PATIENT HAS BEEN REFERRED TO: [facility]/ JON GONZALEZ P: [phone]
--- NOTE | 2020-09-30 10:43 | Psychiatry Consultation ---
Psychiatry Consultation Psychiatry Consultation Chief Complaint: Altered Mental Status History of Present Illness: 60yo female who came into [facility] very confused and disorganized as well as agitated. She as admitted to the med surg unit but was making non sensical statements. Patient was answering questions in a vague manner and would not let me see her face upon interview. Unable to contract for safety. Per nusing staff patient has been verbally abusive and had intermittent episoders of agitation and mood lability mixed with extreme confusion. Not allowing blood draws or treatment at times. Allergies: Coded Allergies: No Known Allergies (Unverified , 09/28/20) Past Psychiatric History: Poor historian/ no response Medical History: UTI Substance Abuse History: Methamphetamine Abuse Social/Family/Abuse/Legal Hx: Denies Medication History Scheduled Cephalexin* (Keflex*), 500 MG ORAL TID Olanzapine* (Zyprexa*), 10 MG ORAL DAILY Objective Data Height (Feet): 5 Height (Inches): 6.00 Weight (Pounds): 210 Appearance: disheveled Behavior Mannerisms: poor eye contact Mood: angry, anxious Thought Process: disorganized Thought Content: delusions (specify) Perceptual Disturbances: auditory Suicidal Ideation: not present Assessment/Plan Assessment/Plan: Risperdal 1mg PO BID ands 20min of Cognitive behavioral therapy whereas I help patient identify her automatic negative thoughts and help her convert those negative thoughts to more positive thoughts Diagnosis [place] I: Paranoid Schizophrenia Nazia Van MD Sep 30, 2020 10:43
--- NOTE | 2020-09-30 10:51 | Podiatric Progress Note ---
Assessment/Plan Patient Leida Hemphill is a 60 year old female who was admitted on Sep 28, 2020 at 08:30 with Problems: (1) Cellulitis, toe (2) Substance abuse Assessment/Plan Rx betadine Rx MRI patient will be followed she is non compliant and combative. Subjective ROS Limited/Unobtainable: Yes Reason for consult infection L toe Allergies: Coded Allergies: No Known Allergies (Unverified , 09/28/20) Subjective patient seen by bedside combative non combative does not allow examination. Homeless L foot wound Objective Exam Last 24 Hour Vital Signs Date Time Temp Pulse Resp B/P (MAP) Pulse Ox O2 Delivery O2 Flow Rate FiO2 09/30/20 09:00 Room Air 09/30/20 08:00 96.5 76 20 136/66 (89) 99 09/30/20 04:00 97.2 69 20 135/69 (91) 96 09/30/20 00:00 97.8 74 20 119/61 (80) 94 09/29/20 21:16 80 16 116/76 96 09/29/20 21:00 Room Air 09/29/20 20:46 88 18 125/76 96 09/29/20 20:00 98.0 82 18 117/78 (91) 97 09/29/20 16:00 97.8 88 18 125/76 (92) 96 09/29/20 12:00 97.9 81 18 129/77 (94) 98 Microbiology Date/Time Source Procedure Growth Status 09/29/20 05:10 Rectum Unverified 09/27/20 14:28 Urine,Clean Catch Urine Culture - Preliminary NO GROWTH Resulted Musculoskeletal Musculoskeletal patient combative and examination is limited Vascular Pulses: 1 dorsalis pedis (R), 1 dorsalis pedis (L), 1 posterior tibial (R), 1 posterior tibial (L) Dermatological Dermatological Narrative hyperkeratotic lesion noted plantar aspect b/l feet sub 1st, 2nd and 5th met heads. R tip hallux noted dry scab. L hallux sulcus noted drainage and pus swollen cellulitis is limited to the area. Hector Antonio DPM Sep 30, 2020 10:51
--- NOTE | 2020-09-30 11:25 | NUR ---
NURSE NOTES: Pt was seen by Dr. Wong for batsheva. feet. Obtained new orders for MRI L foot and wound care. However pt refused MRI and wound care. Pt yelling and aggressive. Pt said " Do not touch me". Will attempt when pt cooperative.
[2020-09-30 12:00] VITALS: BP 142/86
--- NOTE | 2020-09-30 12:05 | NUR ---
FORCE VARIATION EQUIPMENT TENDER NOTE - DC PLANNING SW received a call from pt's board and care aquatic facility manager, Anabell [phone] and confirmed that pt is welcome to return upon DC. Bisi Olsen [address] [place] [address]
--- NOTE | 2020-09-30 14:24 | Consultation ---
Consult Note Consult Note NEUROLOGY CONSULTATION DATE OF CONSULTATION: 09/30/2020 Shiva AYALA MD, Dr Reason for Referral: AMS. HPI: This is a 60-year-old homeless female presents to [facility] as a Yojana Funes however, ED MD was able to identify her by a label of her name and she has been here previously as well. She is from a custodial however was found on the streets. She has recent use of methamphetamine and urine tox screen was positive. She has been non compliant and refusing nursing care. At the time of admission she was confused, I am currently seeing her in 401-1 ans she is refusing to talk to me and is not cooperating in my exam, she states "Go away" PAST MEDICAL HISTORY: Schizophrenia, Drug Abuse, non compliance PAST SURGICAL HISTORY: Unknown. MEDICATIONS: Reviewed ALLERGIES: NKDA. SOCIAL HISTORY: Lives in custodial, unknown if smokes does drugs ROS unable to assess PE Vitals reviewed Genera: Laying in bed, is upset answers to her name and states "Go away", refusing exam unable to complete neuro exa due to patient being uncooperative However she is awake, oriented to her self her name' language is intact no involuntary movements seen LABORATORY white count 18, BUN 35, glucose 111, AST 41, alkaline phosphatase 267. TSH 0.6. Urinalysis show 2+ blood, 2+ ketones, 3+ protein, 1+ leukocyte esterase. Urine toxicology positive for methamphetamine. ASSESSMENT AND REC'S: 1. Toxic Encephalopathy --> likely due to meth abuse, rec cessation of drug abuse --> cont to monitor 2. Altered level of consciousness. --> due to above 2. Schizophrenia. 3. Drug abuse with methamphetamine. 4. Urinary tract infection. 5. Leukocytosis. Thank you for allowing us to particpate in patient's care plan of care was discussed with Dr. Kyle Calderon who agrees. Nessa Weems NP Sep 30, 2020 14:24
--- NOTE | 2020-09-30 15:09 | NUR ---
CASE MANAGEMENT:REVIEW 09/30/20 SI: AMS/PSYCHOSIS. UTI. FOOT ABRASION. METH ABUSE 97.4 73 20 142/86 97% ON RA IS: IV ROCEPHIN Q24 RISPERDAL PO BID HEPARIN SQ Q12 IVF@60/HR : MED/SURG STATUS DCP: LIVES IN BOARD AND CARE PLAN: PATIENT CAN RETURN TO HER BOARD AND CARE ~ DIRK MANOR ~ SEE REMOTE SENSING ADVISOR NOTE MD WANTS PATIENT TO BE REFERRED TO [facility]
[2020-09-30 16:00] VITALS: BP 128/73
--- NOTE | 2020-09-30 19:18 | NUR ---
NURSE HAND-OFF: Important Events on Shift:[Pt non compliant, refused blood draw, meds, MRI, wound care. Pt agitated and aggressive to nurse] Patient Status: [] Diet: [reg] Pending Orders: [MRSA, MRI, blood test] Pending Results/Labs:[] Pending MD notification:[] Latest Vital Signs: Temperature 98.0 , Pulse 82 , B/P 128 /73 , Respiratory Rate 20 , O2 SAT 99 , Room Air, O2 Flow Rate . Vital Sign Comment: [stable] Latest Donis Fall Score: 60 Fall Risk: High Risk Safety Measures: Call light Within Reach, Bed Alarm Zone 1, Side Rails Side Rails x3, Bed position Low and Locked. Fall Precautions: Yellow Socks Door Sign Patient Fall Education Report given to [MORENO Loyd].
[2020-09-30 20:00] VITALS: BP 153/71
--- NOTE | 2020-09-30 20:55 | NUR ---
NURSE NOTES: Assisted to bed oglesby, refused perineal area to be wiped down after urinating. Refused scheduled heparin SubQ multiple times despite explaining risks & benefits. Pt yelled at RN stating, "Go f with your shot!".
[2020-10-01] VITALS: BP 160/69
--- NOTE | 2020-10-01 00:54 | NUR ---
NURSE NOTES: Pt sleeping in bed, in no acute distress.
--- NOTE | 2020-10-01 01:44 | Consultation ---
DATE OF CONSULTATION: 09/30/2020 REFERRING PHYSICIAN: Kendall Shannon D.O. REASON FOR CONSULTATION: Infection to the left foot. The patient was seen by bedside, noncompliant, combative, not responding to questions and not allowing examination. PAST MEDICAL HISTORY: Per Dr. Shannon. PHYSICAL EXAMINATION: Again very difficult to obtain. The patient does not allow to try to conducted examination. DERMATOLOGICAL: Hyperkeratotic tissue was identified at the plantar aspect of bilateral feet over the first, second, and fifth metatarsals. There is a slight abrasion and purulent discharge at the sulcus of the left hallux. Cannot determine if it is probing to bone. There is no periwound abscesses. Cannot determine if there is any deep abscess or cellulitis. No malodor is identified. There is a hyperkeratotic dry ulceration lesion at the tip of the great toe of the right foot, pretty much dry, no sign of infection, stable. ASSESSMENT AND PLAN: A noncompliant patient with multiple keratotic lesions to bilateral legs and infection to the left great toe. Order was given for application of Betadine, do dry dressings. It will be beneficial to try to get her to get an MRI to rule out an abscess or bone infection. The patient will be followed. Hector Antonio D.P.M DR: RONEN JOB#: [id number] CC:
[2020-10-01 04:00] VITALS: BP 153/88
--- NOTE | 2020-10-01 06:32 | NUR ---
NURSE HAND-OFF: Important Events on Shift:non compliant, combative Patient Status: stable Diet: regular Pending Orders: MRI left foot Pending Results/Labs:cbc, bmp Pending MD notification: Latest Vital Signs: Temperature 97.2 , Pulse 69 , B/P 153 /88 , Respiratory Rate 16 , O2 SAT 96 , Room Air, O2 Flow Rate . Vital Sign Comment: Latest Donis Fall Score: 60 Fall Risk: High Risk Safety Measures: Call light Within Reach, Bed Alarm Zone 1, Side Rails Side Rails x3, Bed position Low and Locked. Fall Precautions: Yellow Socks Door Sign Patient Fall Education Report given to MORENO Little.
[2020-10-01 08:00] VITALS: BP 148/79
--- NOTE | 2020-10-01 08:24 | Psychiatry Consultation ---
Psychiatry Consultation Psychiatry Consultation Chief Complaint: Altered Mental Status History of Present Illness: 60-year-old female she has a lot of psychomotor agitation irritability extreme mood lability verbally abusive with staff confused disorganized and because of her declining cognition below her baseline attending has requested daily psychiatric consultation at this time she is intermittently resistant to care and still has some mood lability confusion and paranoid delusions was started with symptoms of psychosis Mental status semination: 60-year-old female her appearance is disheveled at irritable agitated affect constricted intellect poor mood depressed anxious motor activity psychomotor agitation attention was poor orientation x2 speech is low volume clear thought process disorganized logical judgment was poor Allergies: Coded Allergies: No Known Allergies (Unverified , 09/28/20) Medication History Scheduled Cephalexin* (Keflex*), 500 MG ORAL TID Olanzapine* (Zyprexa*), 10 MG ORAL DAILY Objective Data Height (Feet): 5 Height (Inches): 6.00 Weight (Pounds): 210 Assessment/Plan Assessment/Plan: Risperdal 1mg PO BID ands 20min of Cognitive behavioral therapy whereas I help patient identify her automatic negative thoughts and help her convert those negative thoughts to more positive thoughts Diagnosis [place] I: Paranoid schizophrenia with exacerbation rule out substance-induced psychosis Nazia Van MD Oct 01, 2020 08:24
--- NOTE | 2020-10-01 08:29 | NUR ---
10/01...Concerning MRI, pt became aggressive when I tried to look at her IV line, started to shoo me from her, yelling and sitting up and making it clear she wants to be left alone and not touched or bothered. Pt is refusing the MRI for a second time. Pt can not and/or will not stay still for the 20-30 minutes MRI exam. MORENO Little was in the room at the time. johann 08:22
--- NOTE | 2020-10-01 08:30 | NUR ---
NURSE NOTES: Primary Dr. Shannon made round. cane pusher made him aware of refusal of care and medicine and non-compliance.
--- NOTE | 2020-10-01 08:35 | Infectious Diseases Prog Note ---
Assessment/Plan 60yo F with: L hallux w/ pus at 1st sulcus, r/o deeper osteomyelitis - on exam 10/01 no clear pus noted, no drainage, no erythema Unable to obtain wound cx as pt refusing exams/wound care MRSA nares neg Afebrile Leukocytosis to 18 AMS, agitation Schizophrenia Meth intoxication R/o UTI 09/27 UA neg, UCx neg R/o COVID - neg Elevated AST to 41 Lymphopenia 09/28 COVID PCR NEG CXR: Diffuse interstitial opacities may represent an infectious/inflammatory process. Plan: Cont CTX 1g IV daily #5 for pus from L hallux wound As pt refusing further w/u, if discharging would give Augmentin 875mg PO BID x2 week course for SSTI and encourage Podiatry f/u as outpatient MRI ordered by Lpn Private Duty Dr. Antonio HIV screen ESR, CRP Trend WBC Monitor CBC/CMP Monitor temp curve, hemodynamics Monitor resp status D/w RN Thank you for this consult. [facility] will continue to follow. Subjective Allergies: Coded Allergies: No Known Allergies (Unverified , 09/28/20) AF NAD on RA Under blanket in bed, doesn't respond to voice, not interactive in exam Objective Last 24 Hour Vital Signs Date Time Temp Pulse Resp B/P (MAP) Pulse Ox O2 Delivery O2 Flow Rate FiO2 10/01/20 04:00 97.2 69 16 153/88 (109) 96 10/01/20 00:00 97.4 85 20 160/69 (99) 98 09/30/20 21:00 Room Air 09/30/20 20:00 99.1 63 20 153/71 (98) 98 09/30/20 16:00 98.0 82 20 128/73 (91) 99 09/30/20 12:00 97.4 73 20 142/86 (104) 97 09/30/20 09:00 Room Air Height (Feet): 5 Height (Inches): 6.00 Weight (Pounds): 210 Gen: NAD HEENT: NCAT Pulm: BL chest rise on RA Abd: Non-distended Ext: No c/c/e. L foot w/ hard darkly pigmented calluses around hallux and under foot. Both feet examined - no clear erythema, drainage or pus noted on exam Skin: No visible rashes Neuro: Doesn't participate in exam Microbiology Date/Time Source Procedure Growth Status 09/29/20 05:10 Rectum Unverified 09/29/20 01:20 Nasal Nares MRSA Culture - Final NO METHICILLIN RESISTANT STAPH AUREUS... Complete 09/28/20 10:32 Nasopharynx Coronavirus COVID-19 PCR (GEORGI) - Final Complete Current Medications Medications (Trade) Dose Ordered Sig/Phuc Route PRN Reason Start Time Stop Time Status Last Admin Dose Admin Barium Sulfate (Varibar Honey) 250 ml NOW PRN MC RAD 09/28/20 21:00 10/01/20 20:48 Barium Sulfate (Varibar [place]) 240 ml NOW PRN MC RAD 09/28/20 21:00 10/01/20 20:48 Barium Sulfate (Varibar Pudding) 230 ml NOW PRN MC RAD 09/28/20 21:00 10/01/20 20:48 Barium Sulfate (Varibar Thin Liquid powder) 148 gm NOW PRN MC RAD 09/28/20 21:00 10/01/20 20:48 Ceftriaxone Sodium 1 gm/ Dextrose 55 ml @ 110 mls/hr Q24H IVPB 09/29/20 09:00 10/06/20 08:59 09/30/20 08:47 Dextrose/Sodium Chloride 1,000 ml @ 60 mls/hr Q50S08C IV 09/28/20 20:30 10/28/20 20:29 09/30/20 22:33 Heparin Sodium (Porcine) (Heparin 5000 units/ml) 5,000 units EVERY 12 HOURS SUBQ 09/28/20 21:00 11/12/20 20:59 09/30/20 08:48 Lorazepam (Ativan) 1 mg Q6H PRN ORAL AGITATION 09/29/20 07:15 10/06/20 07:14 Risperidone (RisperDAL) 1 mg BID ORAL 09/29/20 09:00 11/13/20 08:59 09/29/20 08:47 Christin Rowley M.D. Oct 01, 2020 08:35
--- NOTE | 2020-10-01 08:44 | NUR ---
P.T Note: late entry for 09/30/20 1020 P.T reattempted, however unable to proceed due to pt being uncooperative. Will reattempted when pt cooperates. RN notified.
[2020-10-01] MEDS: cefTRIAXone 1gm/D5W 55ml IVPB SCH ×2 (09:00)
[2020-10-01] MEDS: Heparin 5000 units/ml inj SUBQ SCH ×2 (09:00→21:00)
--- NOTE | 2020-10-01 09:04 | General Progress Note ---
Subjective Constitutional: Reports: weakness Allergies: Coded Allergies: No Known Allergies (Unverified , 09/28/20) Subjective sleepy calm Objective Last 24 Hour Vital Signs Date Time Temp Pulse Resp B/P (MAP) Pulse Ox O2 Delivery O2 Flow Rate FiO2 10/01/20 04:00 97.2 69 16 153/88 (109) 96 10/01/20 00:00 97.4 85 20 160/69 (99) 98 09/30/20 21:00 Room Air 09/30/20 20:00 99.1 63 20 153/71 (98) 98 09/30/20 16:00 98.0 82 20 128/73 (91) 99 09/30/20 12:00 97.4 73 20 142/86 (104) 97 Intake and Output 09/30/20 10/01/20 19:00 07:00 Intake Total 120 ml 840 ml Balance 120 ml 840 ml Intake Oral 120 ml 240 ml IV Total 600 ml # Voids 1 2 # Bowel Movements 1 Height (Feet): 5 Height (Inches): 6.00 Weight (Pounds): 210 General Appearance: lethargic EENT: normal ENT inspection Neck: normal alignment Cardiovascular: normal peripheral pulses, normal rate, regular rhythm Respiratory/Chest: chest wall non-tender, lungs clear, normal breath sounds Abdomen: normal bowel sounds, non tender, soft Extremities: normal inspection Edema: no edema noted Arm (L), no edema noted Arm (R), no edema noted Leg (L), no edema noted Leg (R), no edema noted Pedal (L), no edema noted Pedal (R), no edema noted Generalized Neurologic: motor weakness Skin: normal pigmentation, warm/dry Objective sl wounds bottom of feet b/l Assessment/Plan Problem List: (1) Foot abrasion ICD Codes: S90.819A - Abrasion, unspecified foot, initial encounter SNOMED: 185599057 (2) Substance abuse ICD Codes: F19.10 - Other psychoactive substance abuse, uncomplicated SNOMED: 68810611 (3) Altered mental status ICD Codes: R41.82 - Altered mental status, unspecified SNOMED: 734013267 (4) Psychosis ICD Codes: F29 - Unspecified psychosis not due to a substance or known physiological condition SNOMED: 55782853 Qualifiers: Qualified Codes: F23 - Brief psychotic disorder (5) UTI (urinary tract infection) ICD Codes: N39.0 - Urinary tract infection, site not specified SNOMED: 84923285 Qualifiers: Qualified Codes: N30.00 - Acute cystitis without hematuria (6) Methamphetamine abuse ICD Codes: F15.10 - Other stimulant abuse, uncomplicated SNOMED: 561657501 Status: unchanged Assessment/Plan: wwound care abx pod eval psyc and neuro eval cbc bmp am aru Kendall Ng DO Oct 01, 2020 09:04
--- NOTE | 2020-10-01 09:10 | NUR ---
NURSE NOTES: fingernail sculptor placed a call to Dr. Marisela OLGUIN's office to relay refusal of an MRI of the left foot. C/O [place].
--- NOTE | 2020-10-01 10:23 | NUR ---
CASE MANAGEMENT:REVIEW 10/01/20 SI: AMS/PSYCHOSIS. UTI. FOOT ABRASION. METH ABUSE 97.1 61 19 148/79 97% ON RA NO LABS FOR TODAY IS: IV ROCEPHIN Q24 RISPERDAL PO BID HEPARIN SQ Q12 IVF@60/HR : MED/SURG STATUS DCP: LIVES IN BOARD AND CARE PLAN: PATIENT CAN RETURN TO HER BOARD AND CARE ~ DIRK MANOR ~ SEE EXPLOSIVE SPECIALIST NOTE MD WANTS PATIENT TO BE REFERRED TO [facility] MRI FOOT ~ PENDING
[2020-10-01 12:00] VITALS: BP 166/85
--- NOTE | 2020-10-01 14:41 | Neurology Progress Note ---
Interim History Interim History ROS Limited/Unobtainable: Yes Complaints: no acute events Objective Physical Exam Last Vital Signs Date Time Temp Pulse Resp B/P (MAP) Pulse Ox O2 Delivery O2 Flow Rate FiO2 10/01/20 12:00 98.0 72 19 166/85 (112) 97 10/01/20 09:00 Room Air 09/27/20 15:26 97 Neurologic Exam Objective PE Vitals reviewed Genera: Laying in bed, is upset answers to her name and states "Go away", refusing exam unable to complete neuro exa due to patient being uncooperative However she is awake, oriented to her self her name' language is intact no involuntary movements seen Impression/Recommendations Status: unchanged Diagnostic Impression ASSESSMENT AND REC'S: 1. Toxic Encephalopathy --> likely due to meth abuse, rec cessation of drug abuse --> cont to monitor 2. Altered level of consciousness. --> due to above 2. Schizophrenia. 3. Drug abuse with methamphetamine. 4. Urinary tract infection. 5. Leukocytosis. Thank you for allowing us to particpate in patient's care plan of care was discussed with Dr. Kyle Calderon who agrees. Nessa Weems GROUNDS MAINTENANCE WORKER Oct 01, 2020 14:41
[2020-10-01] MEDS: D5 1/2NS 1,000 ML IV SCH (15:26)
--- NOTE | 2020-10-01 15:45 | NUR ---
P.T Note: P.T reattempted for the 3rd day , pt continue to refused and uncooperative. Will DC P.T.
[2020-10-01 16:00] VITALS: BP 171/97
[2020-10-01] MEDS ORDERED: LORazepam Inj 2mg/ml 1ml IM PRN (17:45)
--- NOTE | 2020-10-01 19:30 | NUR ---
Nurses Notes Report given Fiona MAYER Patient awake lying comfortable in bed. answers to name. ramble words. Breathing on room air unlabored and evening. no signs of distress noted. Pt IV to LAC infusing D50.45%NS @ 60ml/hr. Pt able to ambulate with assistance. voiding using bedpan. Pt able to turn self to prevent skin breakdown and for comfort. Bed in lowest position call light in reach. will continue to monitor for treatment and care
--- NOTE | 2020-10-01 19:44 | NUR ---
NURSE HAND-OFF: Important Events on Shift:[Refused care, aggressive, non compliant treatment, test and meds] Patient Status: [] Diet: [reg] Pending Orders: [] Pending Results/Labs:[] Pending MD notification:[] Latest Vital Signs: Temperature 97.1 , Pulse 76 , B/P 171 /97 , Respiratory Rate 19 , O2 SAT 100 , Room Air, O2 Flow Rate . Vital Sign Comment: [High BP] Latest Donis Fall Score: 60 Fall Risk: High Risk Safety Measures: Call light Within Reach, Bed Alarm Zone 1, Side Rails Side Rails x3, Bed position Low and Locked. Fall Precautions: Yellow Socks Door Sign Patient Fall Education Report given to [MORENO Angel].
[2020-10-01 20:00] VITALS: BP 165/81
[2020-10-02 00:52] VITALS: BP 175/81
[2020-10-02 04:00] VITALS: BP 150/89
--- NOTE | 2020-10-02 04:58 | NUR ---
Nurses Notes Pt refused phlebotomy this am. Dr. Sánchez notified.
--- NOTE | 2020-10-02 07:30 | NUR ---
NURSE NOTES: Patient lying in bed awake. No complain of pain or distress at this time. IV dressing intact and dry. Bed lowest position and side rails up. Bed alarm on. Call light within reach. Will continue to monitor.
[2020-10-02] MEDS: D5 1/2NS 1,000 ML IV SCH (07:50)
[2020-10-02 08:00] VITALS: BP 166/84
--- NOTE | 2020-10-02 08:05 | Infectious Diseases Prog Note ---
Assessment/Plan 60yo F with: L hallux w/ pus at 1st sulcus, r/o deeper osteomyelitis - on exam 10/01 no clear pus noted, no drainage, no erythema Unable to obtain wound cx as pt refusing exams/wound care MRSA nares neg Afebrile Leukocytosis to 18 AMS, agitation Schizophrenia Meth intoxication R/o UTI 09/27 UA neg, UCx neg R/o COVID - neg Elevated AST to 41 Lymphopenia 09/28 COVID PCR NEG CXR: Diffuse interstitial opacities may represent an infectious/inflammatory process. Plan: Cont CTX 1g IV daily #02/02 for pus from L hallux wound As pt refusing further w/u, if discharging would give Augmentin 875mg PO BID x2 week total course for SSTI and encourage Podiatry f/u as outpatient MRI ordered by Drawer Maker Dr. Antonio HIV screen ESR, CRP Trend WBC Monitor CBC/CMP Monitor temp curve, hemodynamics Monitor resp status D/w RN Thank you for this consult. [facility] will continue to follow. Subjective Allergies: Coded Allergies: No Known Allergies (Unverified , 09/28/20) AF NAD on RA Going to be discharged, refusing everything Objective Last 24 Hour Vital Signs Date Time Temp Pulse Resp B/P (MAP) Pulse Ox O2 Delivery O2 Flow Rate FiO2 10/02/20 04:00 97.2 75 20 150/89 (109) 96 10/02/20 00:52 97.5 67 20 175/81 (112) 99 10/02/20 00:51 175/82 10/01/20 21:00 Room Air 10/01/20 20:00 97.1 65 20 165/81 (109) 96 10/01/20 16:00 97.1 76 19 171/97 (121) 100 10/01/20 12:00 98.0 72 19 166/85 (112) 97 10/01/20 09:00 Room Air Height (Feet): 5 Height (Inches): 6.00 Weight (Pounds): 210 Gen: NAD HEENT: NCAT Pulm: BL chest rise on RA Abd: Non-distended Ext: No c/c/e. L foot w/ hard darkly pigmented calluses around hallux and under foot. Both feet examined - no clear erythema, drainage or pus noted on exam Skin: No visible rashes Neuro: Doesn't participate in exam Current Medications Medications (Trade) Dose Ordered Sig/Phuc Route PRN Reason Start Time Stop Time Status Last Admin Dose Admin Ceftriaxone Sodium 1 gm/ Dextrose 55 ml @ 110 mls/hr Q24H IVPB 09/29/20 09:00 10/06/20 08:59 10/01/20 09:00 Clonidine HCl (Catapres Tab) 0.1 mg EVERY 2 HOURS PRN ORAL sbp>170 10/01/20 23:10 12/30/20 23:09 10/02/20 00:51 Dextrose/Sodium Chloride 1,000 ml @ 60 mls/hr [id number] IV 09/28/20 20:30 10/28/20 20:29 10/01/20 15:26 Heparin Sodium (Porcine) (Heparin 5000 units/ml) 5,000 units EVERY 12 HOURS SUBQ 09/28/20 21:00 11/12/20 20:59 09/30/20 08:48 Lorazepam (Ativan 2mg/ml 1ml) 1 mg Q6H PRN IM Agitation 10/01/20 17:45 10/08/20 17:44 Lorazepam (Ativan) 1 mg Q6H PRN ORAL AGITATION 09/29/20 07:15 10/06/20 07:14 Risperidone (RisperDAL) 1 mg BID ORAL 09/29/20 09:00 11/13/20 08:59 09/29/20 08:47 Christin Rowley M.D. Oct 02, 2020 08:05
--- NOTE | 2020-10-02 08:31 | Psychiatry Consultation ---
Psychiatry Consultation Psychiatry Consultation Chief Complaint: Altered Mental Status History of Present Illness: 60-year-old female patient she is got altered mental status confusion disor ganized thought process and declining cognition below her baseline she still has some mood lability and verbally abusive and agitated with staff as far she requires daily psychiatric consultation to try to stabilize her mood and prevent any further decline in her cognition below her baseline Mental status examination: 60-year-old female appears disheveled at irritable agitated affect guarded restricted intellect poor mood depressed anxious motor activity psychomotor agitation attention span is poor orientation x2 speech is nonsensical thought process disorganized logical insight judgment is poor Allergies: Coded Allergies: No Known Allergies (Unverified , 09/28/20) Medication History Scheduled Cephalexin* (Keflex*), 500 MG ORAL TID Olanzapine* (Zyprexa*), 10 MG ORAL DAILY Objective Data Height (Feet): 5 Height (Inches): 6.00 Weight (Pounds): 210 Assessment/Plan Assessment/Plan: Risperdal 1mg PO BID ands 20min of Cognitive behavioral therapy whereas I help patient identify her automatic negative thoughts and help her convert those negative thoughts to more positive thoughts Diagnosis [place] I: Paranoid schizophrenia with acute exacerbation rule out substance-induced psychosis Nazia Van MD Oct 02, 2020 08:31
--- NOTE | 2020-10-02 08:45 | NUR ---
RD ASSESSMENT & RECOMMENDATIONS SEE CARE ACTIVITY FOR COMPLETE ASSESSMENT DAILY ESTIMATED NEEDS: Needs based on Wounds, 62kg abw 30-35 kcals/kg 3161-0495 total kcals 1.25-1.5 g protein/kg 78-93 g total protein 25-35ml/kcal mL/kg 0869-4903 total fluid mLs NUTRITION DIAGNOSIS: Increased pro needs r/t wound healing as evidenced by BL foot wounds, refer to podiatry eval, noted, h/o homelessness and substance abuse. CURRENT DIET: Regular, ms finely chopped PO DIET RECOMMENDATIONS: Maintain Regular diet, texture per ROLL MECHANIC ADDITIONAL RECOMMENDATIONS: 1) Obtain a calibrated bed scale wt 2) Rec HgA1C - pt refusing labs 3) ROLL MECHANIC eval, f/up for appropriate texture- on ms finely chopped 4) Add Ensure Enlive TID as tolerated 5) F/up w/ wound eval-> continue STACI BID 6) Updated labs as able
[2020-10-02] MEDS: cefTRIAXone 1gm/D5W 55ml IVPB SCH ×2 (08:58)
[2020-10-02] MEDS: Heparin 5000 units/ml inj SUBQ SCH (09:00)
--- NOTE | 2020-10-02 09:06 | NUR ---
NURSE NOTES: Patient refused morning scheduled medications. Explained risks and benefits but still refuse. Will continue to monitor.
--- NOTE | 2020-10-02 09:30 | Neurology Progress Note ---
Interim History Interim History ROS Limited/Unobtainable: Yes Events: pt is non compliant refusing care Objective Physical Exam Last Vital Signs Date Time Temp Pulse Resp B/P (MAP) Pulse Ox O2 Delivery O2 Flow Rate FiO2 10/02/20 09:00 Room Air 10/02/20 08:00 97.8 66 20 166/84 (111) 99 09/27/20 15:26 97 Neurologic Exam Objective PE Vitals reviewed Genera: Laying in bed, is upset answers to her name and states "Go away", refusing exam unable to complete neuro exa due to patient being uncooperative However she is awake, oriented to her self her name' language is intact no involuntary movements seen Impression/Recommendations Status: unchanged Diagnostic Impression ASSESSMENT AND REC'S: 1. Toxic Encephalopathy --> likely due to meth abuse, rec cessation of drug abuse --> cont to monitor 2. Altered level of consciousness. --> due to above 2. Schizophrenia. 3. Drug abuse with methamphetamine. 4. Urinary tract infection. 5. Leukocytosis. 6. non compliant Thank you for allowing us to particpate in patient's care plan of care was discussed with Dr. Kyle Calderon who agrees. Nessa Weems TECHNICAL OPERATIONS MANAGER Oct 02, 2020 09:29
[2020-10-02] MEDS ORDERED: AUGMENTIN 875-1 EAC1 ORAL (10:20)
--- NOTE | 2020-10-02 10:40 | NUR ---
NURSE NOTES: Seen and evaluated by and new order received. Order read back and carried out.
--- NOTE | 2020-10-02 11:36 | NUR ---
NURSE NOTES: Offered Blood pressure medication but patient refused. Patient stated "I feel fine and don't want to take medication." Explained risks and benefits but still refuse. Will continue to monitor.
--- NOTE | 2020-10-02 11:46 | NUR ---
RATE ANALYST NOTE SIMONE spoke yaima Valdez [facility] [phone] and faxed the clinicals to [phone] for [facility] Psych transfer. SIMONE will continue to F/U. Addendum: 10/02/20 at 1331 by NUPUR NICHOLS SIMONE spoke yaima Valdez that the clinicals are currently in review and this SW will receive a phone call if pt is accepted. SIMONE will continue to F/U.
[2020-10-02 12:00] VITALS: BP 157/101
--- NOTE | 2020-10-02 12:53 | General Progress Note ---
Subjective Constitutional: Reports: weakness Allergies: Coded Allergies: No Known Allergies (Unverified , 09/28/20) All Systems: reviewed and negative except above Subjective sleepy calm Objective Last 24 Hour Vital Signs Date Time Temp Pulse Resp B/P (MAP) Pulse Ox O2 Delivery O2 Flow Rate FiO2 10/02/20 12:00 97.9 85 19 157/101 (119) 98 10/02/20 09:00 Room Air 10/02/20 08:00 97.8 66 20 166/84 (111) 99 10/02/20 04:00 97.2 75 20 150/89 (109) 96 10/02/20 00:52 97.5 67 20 175/81 (112) 99 10/02/20 00:51 175/82 10/01/20 21:00 Room Air 10/01/20 20:00 97.1 65 20 165/81 (109) 96 10/01/20 16:00 97.1 76 19 171/97 (121) 100 Intake and Output 10/01/20 10/02/20 19:00 07:00 Intake Total 720 ml Balance 720 ml Intake Oral 720 ml # Voids 2 # Bowel Movements 1 Height (Feet): 5 Height (Inches): 6.00 Weight (Pounds): 210 General Appearance: lethargic, confused EENT: normal ENT inspection Neck: normal alignment Cardiovascular: normal peripheral pulses, normal rate, regular rhythm Respiratory/Chest: chest wall non-tender, lungs clear, normal breath sounds Abdomen: normal bowel sounds, non tender, soft Extremities: normal inspection Edema: no edema noted Arm (L), no edema noted Arm (R), no edema noted Leg (L), no edema noted Leg (R), no edema noted Pedal (L), no edema noted Pedal (R), no edema noted Generalized Neurologic: motor weakness Skin: normal pigmentation, warm/dry Objective sl wounds bottom of feet b/l Assessment/Plan Problem List: (1) Foot abrasion ICD Codes: S90.819A - Abrasion, unspecified foot, initial encounter SNOMED: 496661379 (2) Substance abuse ICD Codes: F19.10 - Other psychoactive substance abuse, uncomplicated SNOMED: 60922521 (3) Altered mental status ICD Codes: R41.82 - Altered mental status, unspecified SNOMED: 346678869 (4) Psychosis ICD Codes: F29 - Unspecified psychosis not due to a substance or known physiological condition SNOMED: 51454770 Qualifiers: Qualified Codes: F23 - Brief psychotic disorder (5) UTI (urinary tract infection) ICD Codes: N39.0 - Urinary tract infection, site not specified SNOMED: 95419125 Qualifiers: Qualified Codes: N30.00 - Acute cystitis without hematuria (6) Methamphetamine abuse ICD Codes: F15.10 - Other stimulant abuse, uncomplicated SNOMED: 742542193 Status: stable, progressing Assessment/Plan: wwound care abx pod eval psyc and neuro eval cbc bmp am transfer to psyc Kendall Shannon DO Oct 02, 2020 12:53
--- NOTE | 2020-10-02 15:18 | Cardiac Electrophysiology PN ---
Subjective Subjective Seen and DW RN Norvasc and prn Clonidine added. No labs since 09/27 as refusing Objective Last 24 Hour Vital Signs Date Time Temp Pulse Resp B/P (MAP) Pulse Ox O2 Delivery O2 Flow Rate FiO2 10/02/20 12:00 97.9 85 19 157/101 (119) 98 10/02/20 09:00 Room Air 10/02/20 08:00 97.8 66 20 166/84 (111) 99 10/02/20 04:00 97.2 75 20 150/89 (109) 96 10/02/20 00:52 97.5 67 20 175/81 (112) 99 10/02/20 00:51 175/82 10/01/20 21:00 Room Air 10/01/20 20:00 97.1 65 20 165/81 (109) 96 10/01/20 16:00 97.1 76 19 171/97 (121) 100 Intake and Output 10/01/20 10/02/20 19:00 07:00 Intake Total 720 ml Balance 720 ml Intake Oral 720 ml # Voids 2 # Bowel Movements 1 Timothy Stewart MD Oct 02, 2020 15:18
--- NOTE | 2020-10-02 15:42 | NUR ---
NURSE NOTES: Spoke to regarding IV fluid and Ok to d/c. Order noted and carried out.
[2020-10-02 16:00] VITALS: BP 145/76
--- NOTE | 2020-10-02 16:17 | NUR ---
HYDROTHERAPIST NOTES SPOKE WITH AAKASH FROM [facility],PT WAS ACCEPTED TO [facility] FOR PSYCH CLEARANCE.
[2020-10-02] MEDS ORDERED: D5 1/2NS 1000ml IV ONE (19:17)
--- NOTE | 2020-10-02 19:19 | NUR ---
NURSE NOTES: Patient discharged with [facility] ([id number]) in stable condition. Discharge packet and belonging given to [facility]. IV and ID removed.
--- NOTE | 2020-10-03 08:14 | Consultation ---
DATE OF CONSULTATION: 10/02/2020 CARDIOLOGY CONSULTATION CONSULTING PHYSICIAN: Timothy Stewart MD REFERRING PHYSICIAN: Kendall Shannon DO. REASON FOR CONSULTATION: Accelerated hypertension. HISTORY OF PRESENT ILLNESS: The patient is a 60-year-old lady who was admitted to the [place] as Yojana Funes. The patient was finally identified. The patient from senior care was found on the street and there is a history of recent methamphetamine abuse. Urine toxicology screen was positive. The patient has been noncompliant and refusing nursing care. The patient was admitted and noted to have accelerated hypertension and a Cardiology consultation was obtained for further evaluation. REVIEW OF SYSTEMS: Cannot be obtained as currently the patient communicate and just screaming. PHYSICAL EXAMINATION: VITAL SIGNS: Blood pressure 157/101, pulse is 85, respirations 19, temperature 97.9. HEAD AND NECK: No JVD. LUNGS: Clear. CARDIOVASCULAR: Regular S1 and S2 with no gallop. ABDOMEN: Soft. EXTREMITIES: Infection of the left foot. LABORATORY DATA: White count of 18.2, , hemoglobin 16.7, hematocrit of 45, and platelet count is 401. Sodium 144, potassium 4.1, BUN of 35 and creatinine 1.1. Troponin . Urine toxicology screen positive for amphetamine. ASSESSMENT AND PLAN: 1. Accelerated hypertension. I will add amlodipine 5 mg daily in her current regimen. 2. Infection of the left toe wound culture. The patient is refusing wound care. Further evaluation by ID and Podiatry. Thank you very much for allowing me to participate in the care of this patient. Please do not hesitate to contact me for any questions regarding my evaluation. Timothy Stewart M.D. DR: SANDY JOB#: [id number] CC:
--- NOTE | 2020-10-03 15:48 | Discharge Summary ---
Discharge Summary Discharge Summary _ Date of admission: 09/28/2020 Date of discharge: 10/02/[address] Shannon History of Present Illness and Brief Hospital Course Ms. Hemphill initially presented to the ED with increased altered mental status and agitation. Patient was found on the street behaving bizarrely. Later, patient was identified to be Leida Hemphill with past medical history of schizophrenia and methamphetamine abuse. Her toxicology screening was positive for amphetamine. Her chest x-ray was notable for diffuse interstitial opacities. She tested negative for COVID-[address] of head showed no evidence of acute pathology. Given signs of UTI and instability with her medical condition, she was hospitalized for further management. Given her underlying psychiatric illness, she was evaluated by a psychiatrist who placed her on Risperdal and cognitive behavioral therapy. She remained irritable with agitated affect. Her speech was nonsensical. Given the findings of urinalysis, she was started on antibiotics. Urine culture was ordered but was negative. She was found to have left hallux with pus at the first sulcus. She was seen by a investor relations associate. Her foot x-ray did not show displaced fracture or dislocation. Foot MRI was ordered to rule out osteomyelitis but was canceled before transfer to psychiatric facility. She was medically stable for transfer and was transferred to a psychiatric facility with hospital medications. Consultants: Cardiology Dr. Stewart Podiatry Dr. Antonio Psychotherapy Dr. Seay Infectious disease Dr. Rowley Discharge Condition Stable Final diagnoses Paranoid schizophrenia Foot abrasion Substance abuse Psychosis UTI Methamphetamine abuse Cellulitis, toe Toxic encephalopathy Leukocytosis I have been assigned to dictate discharge summary for this account. I was not involved in the patient's management Babatunde May Oct 03, 2020 15:48
== END 2020-10-02 19:18 | DRG 896 ==
LOC: EDBD 13:33 → EMR 13:51 → EDBD 13:51 → EDBEDREQ 09-28 07:50 → 4E 09-28 08:30 → EDBEDREQ 09-28 17:15 → 4E 09-29 15:18
DX: F15.159 Other stimulant abuse with stimulant-induced psychotic disorder, unspecified (principal); G92 Toxic encephalopathy; F20.0 Paranoid schizophrenia; N39.0 Urinary tract infection, site not specified; S90.819A Abrasion, unspecified foot, initial encounter; X58.XXXA Exposure to other specified factors, initial encounter; L03.039 Cellulitis of unspecified toe; Z91.19 Patient's noncompliance with other medical treatment and regimen; L03.031 Cellulitis of right toe
CPT/HCPCS: 36415; 71045; 80053; 80307; 81003; 82248; 84443; 84484; 85007; 85025; 86703; 87081; 87086; 96361; 96365; 96372; 96375; 99285; G0480; J7030